=== PATIENT | male | born 1970 | race Caucasian/White ===

== ENCOUNTER 2019-01-26 11:10 | Emergency (ER) | payer MEDICARE ==
[~2019-01-26] VITALS: Ht 177.8 cm; Wt 70.3 kg
[2019-01-26] MEDS ORDERED: FUROSEMIDE 20 M20 MG PO (11:19)
[2019-01-26] MEDS ORDERED: SPIRONOLACTONE25 MG PO (11:20)
[2019-01-26] MEDS ORDERED: PROZAC20 M1 PO (11:20)
[2019-01-26] MEDS ORDERED: ZESTRIL5 MG PO (11:20)
[2019-01-26] MEDS ORDERED: TRAZODONE HCL100 MG PO (11:21)
[2019-01-26] MEDS ORDERED: LIPITOR80 MG PO (11:21)
[2019-01-26] MEDS ORDERED: CARVEDILOL12.5 MG PO (11:21)
[2019-01-26] MEDS ORDERED: METFORMIN HCL500 M3 PO (11:21)
[2019-01-26] MEDS ORDERED: LEVEMIR FL100 UNIT/2 SUBQ (11:22)
[2019-01-26] MEDS ORDERED: NOVOLOG FL100 UNIT/M SUBQ (11:22)
[2019-01-26 11:45] LABS: ABSOLUTE EOSINOPHILS 0.1 thou/uL (0.0-0.7); ABSOLUTE LYMPHOCYTES 1.1 thou/uL (0.8-5.3); ABSOLUTE MONOCYTES 0.2 thou/uL (0.0-1.2); ABSOLUTE NEUTROPHILS 5.5 thou/uL (1.6-8.1); BASOPHILS 0.6 %; HEMATOCRIT 39.8 % (42.0-52.0); HEMOGLOBIN 13.6 gm/dL (14.0-18.0); LYMPHOCYTES 16.2 %; MCH 32.1 pg (26.0-34.0); MCHC 34.1 g/dL (28.0-37.0); MCV 94.2 fL (80.0-100.0); MPV 8.4 fl. (7.2-11.1); NUCLEATED RBCS 0 /100WBC; PLATELET COUNT* 178 thou/uL (150-400); POLYS 79.2 %; RBC 4.23 mil/uL (4.50-6.00); RDW-CV 12.8 % (10.5-14.5); WBC 6.9 thou/uL (4.0-11.0)
[2019-01-26 11:53] LABS: CALCIUM 9.6 mg/dL (8.5-10.1); CREATININE 1.1 mg/dL (0.6-1.3); POTASSIUM 3.3 mmol/L (3.5-5.1)
[2019-01-26 11:57] LABS: ALBUMIN 3.2 g/dL (3.4-5.0); TOTAL BILIRUBIN 0.3 mg/dL (<0.1-1.0); TOTAL PROTEIN 7.1 g/dL (6.4-8.2)
[2019-01-26 13:31] LABS: URINE BILIRUBIN NEGATIVE (Negative); URINE BLOOD 1+ (Negative); URINE CLARITY CLEAR; URINE COLOR YELLOW; URINE GLUCOSE-RANDOM 1+ (Negative); URINE KETONES NEGATIVE (Negative); URINE LEUKOCYTES-REFLEX NEGATIVE (Negative); URINE NITRITE-REFLEX NEGATIVE (Negative); URINE PROTEIN NEGATIVE (Negative); URINE SPECIFIC GRAVITY 1.025 (1.005-1.030); URINE UROBILINOGEN 0.2 E.U./dl (0.2-1.0)
[2019-01-26 15:14] VITALS: BP 116/71
--- NOTE | 2019-01-27 13:59 | EKG ---
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[id number] Requested By: Rosi Najera Order Number: [id number] Chidi MD: Juan Carlos Madrid Measurements Intervals [place] Rate: 98 P: 72 MT: 178 QRS: 91 QRSD: 128 T: 151 QT: 405 QTc: 518 Interpretive Statements Sinus rhythm Nonspecific intraventricular conduction delay Probable anterior infarct, age indeterminate Lateral leads are also involved No previous ECG available for comparison Electronically Signed On 01-27-2019 13:59:00 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
== END 2019-01-26 15:21 | disposition home or self-care (01) ==
LOC: M.ERS 11:10
PROVIDERS: Personal Emergency Response Attendant
DX: E11.649 Type 2 diabetes mellitus with hypoglycemia without coma (principal); I50.9 Heart failure, unspecified; F17.210 Nicotine dependence, cigarettes, uncomplicated; Z79.4 Long term (current) use of insulin